=== PATIENT | female | born 1935 | race Caucasian/White ===

== ENCOUNTER 2022-07-08 08:50 | Day surgery (SDC) | payer MEDICARE ==
[2022-07-04 13:58] VITALS: BMI 23.0
[2022-07-08] MEDS ORDERED: PROPOFOL 0 ML ONE (10:59)
[2022-07-08] MEDS ORDERED: Fentanyl 100 MCG/2 ML VIAL ONE ×2 (10:59→12:03)
[2022-07-08] MEDS ORDERED: Lidocaine 2% PF 5 ML VIAL ONE ×2 (11:00→12:03)
[2022-07-08] MEDS ORDERED: HYDROmorphone 0.5 MG/0.5 ML SYRINGE ONE (11:03)
[2022-07-08] MEDS ORDERED: Midazolam HCl 2 mg/2 ml Vial ONE (11:07)
[2022-07-08] MEDS ORDERED: Lidocaine 1% (PF) 30 ML VIAL ONE (12:01)
[2022-07-08] MEDS ORDERED: CEFAZOLIN 1 GM VIAL ONE (12:01)
[2022-07-08] MEDS ORDERED: EPINEPHrine 1 MG/ML AMP ONE (12:01)
[2022-07-08] MEDS ORDERED: Rocuronium Bromide 10 MG/ML (10ML VIAL) ONE (12:03)
[2022-07-08] MEDS ORDERED: Dexamethasone 20 MG/5 ML VIAL ONE (12:03)
[2022-07-08] MEDS ORDERED: Ondansetron PF 4 MG/2 ML Vial ONE (12:03)
[2022-07-08] MEDS ORDERED: PROPOFOL 20 ML ONE (12:03)
[2022-07-08] MEDS ORDERED: Oxymetazoline HCl 0.05% ( 15 ML ) ONE (13:00)
== END 2022-07-08 14:15 | disposition home or self-care (01) ==
LOC: CSHSDC 08:50
PROVIDERS: ATTEND Otolaryngology Plastic Surgery within the Head & Neck
PROC: 8E09XBZ Computer Assisted Procedure of Head and Neck Region (ICD-10-PCS; principal; 2022-07-08)
PROC: 099Q8ZZ Drainage of Right Maxillary Sinus, Via Natural or Artificial Opening Endoscopic (ICD-10-PCS; 2022-07-08)
DX: J32.0 Chronic maxillary sinusitis (principal); E03.9 Hypothyroidism, unspecified; H26.9 Unspecified cataract; Z85.3 Personal history of malignant neoplasm of breast; Z85.828 Personal history of other malignant neoplasm of skin; Z79.899 Other long term (current) drug therapy; Z88.0 Allergy status to penicillin; Z20.822 Contact with and (suspected) exposure to COVID-19; Z90.710 Acquired absence of both cervix and uterus; Z98.890 Other specified postprocedural states
CPT/HCPCS: 88305; J0171; J0690; J1100; J1170; J2001; J2250; J2405; J2704; J3010